=== PATIENT | male | born 1990 | race Hispanic/Latino ===

== ENCOUNTER 2019-01-18 08:12 | Day surgery (SDC) | payer OTHER ==
[~2019-01-18] VITALS: Ht 170.2 cm; Wt 81.6 kg
[2019-01-18] VITALS (7 sets, daily range): BP systolic 78–118; BP diastolic 20–67
[~2019-01-18 08:12] MED LIST: FAMO-136 PO; SODIUM CHLORIDE 0.9% 1000ML 1,000 ML IV ONE
[2019-01-18] MEDS ORDERED: PROPOFOL 10 MG/ML 20ML VIAL IV ONE (09:52)
== END 2019-01-18 10:37 | disposition home or self-care (01) ==
LOC: ENDO 08:12 → DAH 08:12 → ENDO 10:37
PROVIDERS: ATTEND Internal Medicine
DX: K29.50 Unspecified chronic gastritis without bleeding (principal); K31.89 Other diseases of stomach and duodenum; K21.9 Gastro-esophageal reflux disease without esophagitis; I10 Essential (primary) hypertension; E66.9 Obesity, unspecified; Z79.899 Other long term (current) drug therapy; Z68.28 Body mass index [BMI] 28.0-28.9, adult; Z82.49 Family history of ischemic heart disease and other diseases of the circulatory system
CPT/HCPCS: 43239; 88305; J2704; J7030